=== PATIENT | male | born 1990 | race Caucasian/White ===

== ENCOUNTER 2016-12-13 20:35 | Emergency (ER) | payer SELFPAY ==
--- NOTE | 2016-12-14 03:18 | ED ORDER SUMMARY ---
..... Patient: TRINH TY OrderSheet [facility] VisitID: [id number] [place] [address] 26y, M Registration Date/Time: 12/13/2016 ORDER SHEET Weight: 90.7 kg (stated) Allergies: No Known Drug Allergy GENERAL ORDERS: CBC w Diff Urgent (21:14 12/13/2016 Destin Cox) (Ack 21:33 Fritz) (22:10 RCollier R.N.) CMP Urgent (21:14 12/13/2016 Destin Cox) (Ack 21:33 Fritz) (22:10 RCollier R.N.) UA-Culture if indicated Urgent (21:14 12/13/2016 Destin Cox) (Ack 21:33 Fritz) (22:14 RCollier R.N.) Urine Drug Screen Urgent (21:14 12/13/2016 Destin Cox) (Ack 21:33 Fritz) (22:15 RCollier R.N.) Salicylate Level Urgent (21:14 12/13/2016 Destin Cox) (Ack 21:33 Fritz) (22:10 RCollier R.N.) Acetaminophen Level Urgent (21:14 12/13/2016 Destin Cox) (Ack 21:33 Fritz) (22:10 RCollier R.N.) Ethyl Alcohol Urgent (21:14 12/13/2016 Destin Cox) (Ack 21:33 Fritz) (22:10 RCollier R.N.) PT with INR Urgent (21:15 12/13/2016 Destin Cox) (Ack 21:33 Fritz) (22:10 RCollier R.N.) Breathalyzer (22:48 12/13/2016 Destin Cox) (22:49 RCollier R.N.) MEDICATION ORDERS: IV FLUIDS: ORDER SHEET NOTES: [Electronically signed by Ramona Crocker R.N. (03:26 12/14/2016)] [Electronically signed by Frandy Granados Dr. (21:14 12/14/2016)] [Electronically locked/signed by Ramona Crocker R.N. (03:26 12/14/2016)]
--- NOTE | 2016-12-14 03:18 | ED NURSING NOTES ---
Clinical Report - Nurses [facility] [address] [place] [address] 12/13/2016 20:37 [id number] Triage time 20:50. Chief Complaint: DEPRESSION and SUICIDAL THOUGHTS. --20:55 Ramona Crocker R.N. 21:07 12/13/16. BP: 128/83. HR: 68. RR: 15. O2 saturation: 99% on room air. Temp: 98.6 F (oral). Pain level now: 0. --21:08 Ramona Crocker R.N. Weight: 90.7 kg stated. Height/Length: 72 inches Per Patient. BMI: 27.1. --20:54 Ramona Crocker R.N. Medications None. --20:54 Ramona Crocker R.N. Allergies No Known Drug Allergy. --20:54 Ramona Crocker R.N. History Arrived by private vehicle. Historian: patient. Accompanied by family. Primary physician (None). Onset: today. --20:55 Ramona Crocker R.N. 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 Pt states many life stress' and is not coping well.). SELF HARM ASSESSMENT: A self harm assessment was performed. The patient answered "yes" to the question "Have you recently felt down, depressed, or hopeless?", "Have you noticed less interest or pleasure in doing things?", "Do you have thoughts of harming or killing yourself?" and "Have you ever tried to hurt yourself before today?" and "no" to the question "Are you here because you tried to hurt yourself?" and "Have you recently had thoughts about harming or killing others?". The patient reports their behavior. In the ED the patient has made suicidal comments. Family at bedside. Clothes and valuables were removed and placed at the nurses station. (pt reports history of attempted hanging 4 months ago and states he would try that again. Pt placed in yellow gown.). --21:01 Ramona Crocker R.N. PROBLEMS: Depression. --20:54 Ramona Crocker R.N. ADDITIONAL SURGERIES: Circumcision. --20:54 Ramona Crocker R.N. PHYSICAL ASSESSMENT Ambulatory to room. Patient gowned. GENERAL / NEURO / PSYCH: Alert. Oriented X 4. Appears in no acute distress. Patient's mood/affect appears tearful. Patient appears calm and cooperative. Good eye contact. Patient appears well-nourished and neat and clean. RESPIRATORY: Respirations not labored. CVS: Capillary refill less than 2 seconds. SKIN: Skin is warm and dry. --21:02 Ramona Crocker R.N. NURSING PROGRESS NOTES Head of bed elevated. Suicide precautions initiated. Continuous one on one supervision, family at bedside, checks performed every 15 minutes, clothing / valuables removed and placed at the nurse's station. Two patient identifiers checked. Call light placed in reach. Side rails up x 1. Bed placed in lowest position. Brakes of bed on. --21:02 Ramona Crocker R.N. Patient ready for evaluation- chart flagged. --21:02 Ramona Crocker R.N. ( girlfriend and mom (Nelly) will be in waiting room, per pts request to have privacy with MD.). --21:14 Ramona Crocker R.N. ( EDMD at bedside,). --21:56 Ramona Crocker R.N. Patient ID band checked for patient name and birthdate: patient confirmed. Blood samples drawn from the right antecubital space with Vacutainer by nurse: jodee greco. --22:09 Ramona Crocker R.N. Patient ID band checked for patient name and birthdate: patient confirmed urine collected with return of jeremy-colored urine; sample sent to lab. Specimen labeled in the presence of the patient. --22:15 Ramona Crocker R.N. Patient and family informed about reason for wait and about plan of care. ( Girlfriend and mother brought back from the waiting room, per pts request.). --22:15 Ramona Crocker R.N. 01:22- PAT called with ETA of 1hr. Pt updated. --23:26 Ramona Crocker R.N. ( 2230 breathalyzer: 0.000). --00:43 Joan Wooten ( PAT at bedside, [facility] --00:47 Ramona Crocker R.N. DISPOSITION / DISCHARGE Condition at departure: improved and stable. No learning barriers present. Discharge instructions provided and reviewed with the patient. Patient verbalized understanding. Written instructions provided in Romanian. The patient was discharged home and accompanied by parent. He left the Emergency Department ambulatory and via private vehicle. Parent driving. ( Pt states "I feel safe to go home".). --03:25 Ramona Crocker R.N. 03:24 12/14/16. BP: 126/75. HR: 49. RR: 15. O2 saturation: 99% on room air. Temp: deferred. Pain level now: 0/10. --03:25 Ramona Crocker R.N. Locked/Released at 12/14/2016 3:26 by Ramona Crocker R.N.
--- NOTE | 2016-12-14 03:18 | ED NURSING NOTES ---
Clinical Report - Nurses [facility] [address] [place] [address] 12/13/2016 20:37 [id number] TRI[facility] Triage time 20:50. Chief Complaint: DEPRESSION and SUICIDAL THOUGHTS. --20:55 Ramona Crocker R.N. 21:07 12/13/16. BP: 128/83. HR: 68. RR: 15. O2 saturation: 99% on room air. Temp: 98.6 F (oral). Pain level now: 0. --21:08 Ramona Crocker R.N. Weight: 90.7 kg stated. Height/Length: 72 inches Per Patient. BMI: 27.1. --20:54 Ramona Crocker R.N. Medications None. --20:54 Ramona Crocker R.N. Allergies No Known Drug Allergy. --20:54 Ramona Crocker R.N. History Arrived by private vehicle. Historian: patient. Accompanied by family. Primary physician (None). Onset: today. --20:55 Ramona Crocker R.N. 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 Pt states many life stress' and is not coping well.). SELF HARM ASSESSMENT: A self harm assessment was performed. The patient answered "yes" to the question "Have you recently felt down, depressed, or hopeless?", "Have you noticed less interest or pleasure in doing things?", "Do you have thoughts of harming or killing yourself?" and "Have you ever tried to hurt yourself before today?" and "no" to the question "Are you here because you tried to hurt yourself?" and "Have you recently had thoughts about harming or killing others?". The patient reports their behavior. In the ED the patient has made suicidal comments. Family at bedside. Clothes and valuables were removed and placed at the nurses station. (pt reports history of attempted hanging 4 months ago and states he would try that again. Pt placed in yellow gown.). --21:01 Ramona Crocker R.N. PROBLEMS: Depression. --20:54 Ramona Crocker R.N. ADDITIONAL SURGERIES: Circumcision. --20:54 Ramona Crocker R.N. PHYSICAL ASSESSMENT Ambulatory to room. Patient gowned. GENERAL / NEURO / PSYCH: Alert. Oriented X 4. Appears in no acute distress. Patient's mood/affect appears tearful. Patient appears calm and cooperative. Good eye contact. Patient appears well-nourished and neat and clean. RESPIRATORY: Respirations not labored. CVS: Capillary refill less than 2 seconds. SKIN: Skin is warm and dry. --21:02 Ramona Crocker R.N. NURSING PROGRESS NOTES Head of bed elevated. Suicide precautions initiated. Continuous one on one supervision, family at bedside, checks performed every 15 minutes, clothing / valuables removed and placed at the nurse's station. Two patient identifiers checked. Call light placed in reach. Side rails up x 1. Bed placed in lowest position. Brakes of bed on. --21:02 Ramona Crocker R.N. Patient ready for evaluation- chart flagged. --21:02 Ramona Crocker R.N. ( girlfriend and mom (Nelly) will be in waiting room, per pts request to have privacy with MD.). --21:14 Ramona Crocker R.N. ( EDMD at bedside,). --21:56 Ramona Crocker R.N. Patient ID band checked for patient name and birthdate: patient confirmed. Blood samples drawn from the right antecubital space with Vacutainer by nurse: jodee greco. --22:09 Ramona Crocker R.N. Patient ID band checked for patient name and birthdate: patient confirmed urine collected with return of jeremy-colored urine; sample sent to lab. Specimen labeled in the presence of the patient. --22:15 Ramona Crocker R.N. Patient and family informed about reason for wait and about plan of care. ( Girlfriend and mother brought back from the waiting room, per pts request.). --22:15 Ramona Crocker R.N. 01:22- PAT called with ETA of 1hr. Pt updated. --23:26 Ramona Crocker R.N. ( 2230 breathalyzer: 0.000). --00:43 Joan Wooten ( PAT at bedside, [facility] --00:47 Ramona Crocker R.N. DISPOSITION / DISCHARGE Condition at departure: improved and stable. No learning barriers present. Discharge instructions provided and reviewed with the patient. Patient verbalized understanding. Written instructions provided in Azerbaijani. The patient was discharged home and accompanied by parent. He left the Emergency Department ambulatory and via private vehicle. Parent driving. ( Pt states "I feel safe to go home".). --03:25 Ramona Crocker R.N. 03:24 12/14/16. BP: 126/75. HR: 49. RR: 15. O2 saturation: 99% on room air. Temp: deferred. Pain level now: 0/10. --03:25 Ramona Crocker R.N. Locked/Released at 12/14/2016 3:26 by Ramona Crocker R.N.
--- NOTE | 2016-12-14 03:18 | ED ORDER SUMMARY ---
..... Patient: TRINH TY OrderSheet [facility] VisitID: [id number] [place] [address] 26y, M Registration Date/Time: 12/13/2016 ORDER SHEET Weight: 90.7 kg (stated) Allergies: No Known Drug Allergy GENERAL ORDERS: CBC w Diff Urgent (21:14 12/13/2016 Destin Cox) (Ack 21:33 Fritz) (22:10 RCollier R.N.) CMP Urgent (21:14 12/13/2016 Destin Cox) (Ack 21:33 Fritz) (22:10 RCollier R.N.) UA-Culture if indicated Urgent (21:14 12/13/2016 Destin Cox) (Ack 21:33 Fritz) (22:14 RCollier R.N.) Urine Drug Screen Urgent (21:14 12/13/2016 Destin Cox) (Ack 21:33 Fritz) (22:15 RCollier R.N.) Salicylate Level Urgent (21:14 12/13/2016 Destin Cox) (Ack 21:33 Fritz) (22:10 RCollier R.N.) Acetaminophen Level Urgent (21:14 12/13/2016 Destin Cox) (Ack 21:33 Fritz) (22:10 RCollier R.N.) Ethyl Alcohol Urgent (21:14 12/13/2016 Destin Cox) (Ack 21:33 Fritz) (22:10 RCollier R.N.) PT with INR Urgent (21:15 12/13/2016 Destin Cox) (Ack 21:33 Fritz) (22:10 RCollier R.N.) Breathalyzer (22:48 12/13/2016 Destin Cox) (22:49 RCollier R.N.) MEDICATION ORDERS: IV FLUIDS: ORDER SHEET NOTES: [Electronically signed by Ramona Crocker R.N. (03:26 12/14/2016)] [Electronically signed by Frandy Granados Dr. (21:14 12/14/2016)] [Electronically locked/signed by Ramona Crocker R.N. (03:26 12/14/2016)]
--- NOTE | 2016-12-14 03:18 | ED CLINICAL REPORT ---
Clinical Report - Physicians/Mid Levels [facility] [address] [place] [address] 12/13/2016 20:37 Patient: TRINH TY Time Seen: 2109; initial patient contact. Arrived- By private vehicle. Historian- patient. Referred by patient's family (sig other). HISTORY OF PRESENT ILLNESS Chief Complaint: DEPRESSED and SUICIDAL THOUGHTS. This started today. The patient has experienced situational problems. Has been depressed. No delusions, self-injury inflicted or hallucinations. Has had suicidal thoughts (no current thoughts but has thought about it in the past.). The symptoms are described as severe. No injury is present. Additional history - transgender. reports having difficulty with identity. Similar symptoms previously: Recent medical care: Not recently seen/assessed. REVIEW OF SYSTEMS No chest pain, palpitations or fever. All systems otherwise negative, except as recorded above. PAST HISTORY See nurses notes. Medications: None. Allergies: No Known Drug Allergy. SOCIAL HISTORY No alcohol use or drug use. ADDITIONAL NOTES The nursing notes have been reviewed. PHYSICAL EXAM Vital Signs: 12/13/2016 21:07 BP: 128/83. HR: 68. RR: 15. O2 saturation: 99%. Temp: 98.6 F. Pain level now: 0/10. Blood pressure normal. Oxygen saturation normal. Appearance: Alert. No acute distress. Appearance is normal. Eyes: Pupils equal, round and reactive to light. Neck: Normal inspection. Neck supple. CVS: Normal heart rate and rhythm. Heart sounds normal. Respiratory: Breath sounds normal. Chest nontender. Abdomen: Soft and nontender. Skin: Skin warm and dry. Normal skin color. Normal skin turgor. Extremities: Extremities exhibit normal ROM. No lower extremity edema. Psych / Neuro: Oriented X 3. Appears depressed. (affect congruent). Speech normal. Cognition normal. Thought process and content normal. Insight and judgement normal. Cranial nerves normal (as tested). No cerebellar findings. No motor deficit. No sensory deficit. Reflexes normal. LABS, X-RAYS, AND EKG Laboratory Tests: UA-Culture if indicated: (CINTHIA: 12/13/2016 22:11) ( MsgRcvd 12/13/2016 22:36) Final results Test Result Flag Units (Reference) URINE COLOR YELLOW URINE APPEARANCE CLEAR URINE GLUCOSE NEGATIVE (NEGATIVE) URINE BILIRUBIN NEGATIVE (NEGATIVE) URINE KETONE NEGATIVE (NEGATIVE) URINE SPECIFIC GRAVITY 1.015 (1.010-1.030) URINE PH 7.0 (5.0-8.0) URINE PROTEIN NEGATIVE (NEGATIVE) URINE UROBILINOGEN 0.2 EU/dL (0.2-1.0) URINE NITRITE NEGATIVE (NEGATIVE) URINE BLOOD NEGATIVE (NEGATIVE) URINE LEUK ESTERASE NEGATIVE (NEGATIVE) URINE RBC 0-1 rbc/hpf (0-1) URINE WBC 0-1 wbc/hpf (0-1) URINE EPITHELIAL CELLS 0-1 EPI/hpf (0-5) URINE BACTERIA NONE SEEN (NONE SEEN) URINE COMMENT CULT NOT INDICATED URINE CULTURES ARE SET-UP BASED ON THE FOLLOWING CRITERIA:POSITIVE NITRITEPOSITIVE LEUKOCYTE ESTERASEGREATER THAN 10 WHITE BLOOD CELLSMODERATE (2+) OR GREATER BACTERIA CBC w Diff: (CINTHIA: 12/13/2016 22:07) ( MsgRcvd 12/13/2016 22:15) Final results Test Result Flag Units (Reference) WHITE BLOOD COUNT 7.9 K/uL (4.5-11.5) RED BLOOD COUNT 5.05 M/uL (4.50-5.90) HEMOGLOBIN 15.3 gm/dL (13.5-17.5) HEMATOCRIT 45.0 % (41.0-53.0) MEAN CELL VOLUME 89 fL (80-100) MEAN CORPUSCULAR HGB 30 pg (26-34) MEAN CORPUSCULAR HGB CONC 34 g/dL (31-37) RED CELL DISTRIBUTION WIDTH 12.4 % (11.6-14.8) PLATELET COUNT 236 K/uL (150-400) NEUTROPHIL % 63.7 % (50-75) LYMPH % 26.1 % (25-40) MONO % 6.9 % (3-14) EOSINOPHIL % 2.9 % (0-4) BASOPHIL % 0.4 % (0-2) PT with INR: (CINTHIA: 12/13/2016 22:07) ( [facility]22) Final results Test Result Flag Units (Reference) INR 1.0 (0.8-1.2) Low Intensity Therapy: INR 1.5-2.0 PT range 18.5-23.1Mod.Intensity Therapy: INR 2.0-3.0 PT range 23.1-31.5High Intensity Therapy: INR 2.5-3.5 PT range 27.4-35.5High Intensity Therapy 2: INR 3.0-4.0 PT range 31.5-39.3 Urine Drug Screen: (CINTHIA: 12/13/2016 22:11) ( MsgRcvd 12/13/2016 22:34) Final results Test Result Flag Units (Reference) AMPHETAMINE/METHAMPHETAMINE NEGATIVE (NEGATIVE) BARBITURATE NEGATIVE (NEGATIVE) BENZODIAZEPINE NEGATIVE (NEGATIVE) CANNABINOID POSITIVE H (NEGATIVE) COCAINE NEGATIVE (NEGATIVE) ECSTASY NEGATIVE (NEGATIVE) METHADONE NEGATIVE (NEGATIVE) OPIATE NEGATIVE (NEGATIVE) The urine drug screen is a qualitative screening test fordrug overdose and abuse. All screen results should beconsidered as presumptive.Drugs screened for are as follows:BenzodiazepinesCocaineAmphetamines/MetamphetaminesTHC (Tetrahydrocannabinol)OpiatesBarbituratesEcstasyMethadonePositive results are unconfirmed. For confirmation, notifythe lab for the specimen to be sent to the reference lab.All confirmations must be performed by a differentmethodology.The ingestion of natural herbal and plant productscontaining Ephedra/Ephedra metabolites can produce in urineone or more substances capable of cross reacting withamphetamine/methamphetamine immunoassays. These testsprovide a preliminary result only. A more specificalternative chemical method must be used to obtain aconfirmed analytical result. Salicylate Level: (CINTHIA: 12/13/2016 22:07) ( MsgRcvd 12/13/2016 22:40) Final results Test Result Flag Units (Reference) SALICYLATE < 0.2 L mg/dL (2.8-20) CMP: (CINTHIA: 12/13/2016 22:07) ( MsgRcvd 12/13/2016 22:59) Final results Test Result Flag Units (Reference) GLUCOSE 101 mg/dL (70-110) BUN 12 mg/dL (7-18) CREATININE 0.7 mg/dL (0.6-1.3) Estimated GFR >60 mL/min Estimated GFR- >60 mL/min Note: Persistent reduction over 3 months in eGFR<60 mL/min/1.73 m2 defines CKD. Patients with eGFR values>=60 mL/min/1.73 m2 may also have CKD if evidence ofpersistent proteinuria. Additional information may be foundat www.kidney.org. SODIUM 144 mmol/L (136-145) POTASSIUM 4.2 mmol/L (3.5-5.1) CHLORIDE 105 mmol/L (98-107) CARBON DIOXIDE 30 mmol/L (21-32) CALCIUM 8.7 mg/dL (8.5-10.1) TOTAL PROTEIN 7.1 g/dL (6.4-8.2) ALBUMIN 3.8 g/dL (3.3-5.0) BILIRUBIN, TOTAL 2.0 H mg/dL (0.0-1.0) ALKALINE PHOSPHATASE 64 U/L (46-116) AST (SGOT) 24 U/L (15-37) ALT (SGPT) 31 U/L (12-78) ACETAMINOPHEN < 2.0 L ug/mL (10-30) ETHYL ALCOHOL <3 L mg/dL (3-10) . PROGRESS AND PROCEDURES Course of Care: patient with depressed thoughts. encouraged by family to seek help. patient with good insight into illness. 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 states she wishes to try another career but has invested so much money and time already. patient is very articulate. work up ordered. patient cleared for crisis team eval. Eval completed. Patient not a danger to self or others. Able to contract to safety. Family agreeable to monitoring her. Patient agreeable to plan. Patient given resources. She is able to follow up as an outpatient. Discussed with family and patient work up, diagnosis, home care, follow up, and return precautions. All questions answered. Patient expressed understanding of these instructions and was agreeable to them. Disposition: Discharged. Condition: good. CLINICAL IMPRESSION 12/13/2016 21:07 BP: 128/83. HR: 68. RR: 15. O2 saturation: 99%. Temp: 98.6 F. Pain level now: 0/10. Adjustment disorder with depressed mood (acute). Blood pressure normal. Oxygen saturation normal. INSTRUCTIONS (Please follow up with the crisis counselor's recommendations). Warnings: GENERAL WARNINGS: Return or contact your physician immediately if your condition worsens or changes unexpectedly, if not improving as expected, or if other problems arise. Specifically return if pain, vomiting, bleeding, breathing difficulty or fever. symptoms return. Your Current Medications: CONTINUE TAKING THE FOLLOWING MEDICATIONS: None*. Follow-up: Return to the emergency department as needed. Follow up with your doctor as scheduled. Reason for referral: recheck today's concerns. Summary of care provided to patient via paper. Screening today revealed the patient's blood pressure to be in the normal range. The patient should follow up with a primary care provider for blood pressure management. Understanding of the discharge instructions verbalized by patient. (Electronically signed by Frandy Granados Dr. 12/14/2016 21:14)
--- NOTE | 2016-12-14 21:14 | ED MAR SUMMARY ---
..... Medication Administration Record [facility] [address] [place], [place] [id number] Patient: REESE TYCristopher Han Visit ID: [id number] 26y, M Weight: 90.7 kg Height/Length: 72 in BMI: 27.1 ALLERGIES: No Known Drug Allergy
--- NOTE | 2016-12-14 21:14 | ED MED RECONCILIATION SUMMARY ---
Patient: TRINH TY Medication Reconciliation Report [facility] VisitID: [id number] [address] [place] [address] 26y, M Registration Date/Time: 12/13/2016 Weight: 90.7 kg Height/Length: 72 in. BMI: 27.1 ALLERGIES: No Known Drug Allergy The patient's Home Medications are listed below: NONE. The source(s) of the original Home Medication information: Not obtained. The following Medications were given to the patient in the Emergency Department: None. The following Medications were prescribed to the patient: None.
--- NOTE | 2016-12-14 21:14 | ED DISCHARGE INSTRUCTIONS ---
Patient: TRINH TY General Instructions [facility] VisitID: [id number] [place] [address] 26y, M Registration Date/Time: 12/13/2016 12/13/2016 21:07 BP: 128/83. HR: 68. RR: 15. O2 saturation: 99%. Temp: 98.6 F. Pain level now: 0/10. Adjustment disorder with depressed mood (acute). Blood pressure normal. Oxygen saturation normal. INSTRUCTIONS (Please follow up with the crisis counselor's recommendations). Warnings: GENERAL WARNINGS: Return or contact your physician immediately if your condition worsens or changes unexpectedly, if not improving as expected, or if other problems arise. Specifically return if pain, vomiting, bleeding, breathing difficulty or fever. symptoms return. Your Current Medications: CONTINUE TAKING THE FOLLOWING MEDICATIONS: None*. Follow-up: Return to the emergency department as needed. Follow up with your doctor as scheduled. Reason for referral: recheck today's concerns. Summary of care provided to patient via paper. Screening today revealed the patient's blood pressure to be in the normal range. The patient should follow up with a primary care provider for blood pressure management. Understanding of the discharge instructions verbalized by patient. ADDITIONAL INFORMATION Adjustment Disorder An adjustment disorder is a condition that results from having a hard time coping with the normal stresses of life. You may feel you have too much to do and cant get it all done. These feelings may be triggered by divorce, job loss, someone you know dying, or by a positive event like getting a new job or getting . These feelings may interfere with your relationships at home and at work. With this condition, it is common to feel sad, guilty, hopeless and restless. These feelings may continue for weeks or months. It can be helpful to identify what is causing the additional stress and takes steps to get extra support. If new stressful events do not occur, it is likely that you will start feeling better within six months. Home Care: If you have been given a prescription for medicine, take it as directed. It helps to talk about your feelings and thoughts with family or friends that understand and support you. Follow Up with your doctor or therapist as advised by our staff. Let them know if this condition lasts more than six months without sign of improvement. For more information, contact the National [place] [employer] Mental [employer]ness at 102-219-9822 or visit www.nina.org. Get Prompt Medical Attention if any of the following occur: Worsening depression or anxiety Feeling out of control Thoughts of harming yourself or another Being unable to care for yourself You have been given the following additional information: Adjustment Disorder (Electronically signed by Frandy Granados Dr. 12/14/2016 21:14)
--- NOTE | 2016-12-14 21:14 | ED DISCHARGE INSTRUCTIONS ---
Patient: TRINH TY General Instructions [facility] VisitID: [id number] [place] [address] 26y, M Registration Date/Time: 12/13/2016 12/13/2016 21:07 BP: 128/83. HR: 68. RR: 15. O2 saturation: 99%. Temp: 98.6 F. Pain level now: 0/10. Adjustment disorder with depressed mood (acute). Blood pressure normal. Oxygen saturation normal. INSTRUCTIONS (Please follow up with the crisis counselor's recommendations). Warnings: GENERAL WARNINGS: Return or contact your physician immediately if your condition worsens or changes unexpectedly, if not improving as expected, or if other problems arise. Specifically return if pain, vomiting, bleeding, breathing difficulty or fever. symptoms return. Your Current Medications: CONTINUE TAKING THE FOLLOWING MEDICATIONS: None*. Follow-up: Return to the emergency department as needed. Follow up with your doctor as scheduled. Reason for referral: recheck today's concerns. Summary of care provided to patient via paper. Screening today revealed the patient's blood pressure to be in the normal range. The patient should follow up with a primary care provider for blood pressure management. Understanding of the discharge instructions verbalized by patient. ADDITIONAL INFORMATION Adjustment Disorder An adjustment disorder is a condition that results from having a hard time coping with the normal stresses of life. You may feel you have too much to do and cant get it all done. These feelings may be triggered by divorce, job loss, someone you know dying, or by a positive event like getting a new job or getting . These feelings may interfere with your relationships at home and at work. With this condition, it is common to feel sad, guilty, hopeless and restless. These feelings may continue for weeks or months. It can be helpful to identify what is causing the additional stress and takes steps to get extra support. If new stressful events do not occur, it is likely that you will start feeling better within six months. Home Care: If you have been given a prescription for medicine, take it as directed. It helps to talk about your feelings and thoughts with family or friends that understand and support you. Follow Up with your doctor or therapist as advised by our staff. Let them know if this condition lasts more than six months without sign of improvement. For more information, contact the National [place] [employer] at 684-912-8807 or visit www.nina.org. Get Prompt Medical Attention if any of the following occur: Worsening depression or anxiety Feeling out of control Thoughts of harming yourself or another Being unable to care for yourself You have been given the following additional information: Adjustment Disorder (Electronically signed by Frandy Granados Dr. 12/14/2016 21:14)
--- NOTE | 2016-12-14 21:14 | ED MED RECONCILIATION SUMMARY ---
Patient: TRINH TY Medication Reconciliation Report [facility] VisitID: [id number] [address] [place] [address] 26y, M Registration Date/Time: 12/13/2016 Weight: 90.7 kg Height/Length: 72 in. BMI: 27.1 ALLERGIES: No Known Drug Allergy The patient's Home Medications are listed below: NONE. The source(s) of the original Home Medication information: Not obtained. The following Medications were given to the patient in the Emergency Department: None. The following Medications were prescribed to the patient: None.
--- NOTE | 2016-12-14 21:14 | ED MAR SUMMARY ---
..... Medication Administration Record [facility] [address] [place], [place] [id number] Patient: REESE TYCristopher Han Visit ID: [id number] 26y, M Weight: 90.7 kg Height/Length: 72 in BMI: 27.1 ALLERGIES: No Known Drug Allergy
== END 2016-12-14 05:34 | disposition home or self-care (01) ==
LOC: ED SRH 20:35
DX: F43.21 Adjustment disorder with depressed mood (principal)
CPT/HCPCS: 90004; 90100; 92010; 92760; 92761; 92762; 92763; 92764; 92765; 92766; 92767; 92780; 94060; 95059; 97000